=== PATIENT | male | born 1950 | race American Indian/Alaskan Native ===

== ENCOUNTER 2019-04-13 17:20 | Emergency (ER) | payer MEDICARE ==
[2019-04-13] MEDS ORDERED: MORPHINE 4 MG/1 ML INJ IV ONE (18:28)
[2019-04-13] MEDS ORDERED: amLODIPine 5 MG TAB PO ONE (18:28)
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
--- NOTE | 2019-04-13 19:32 | Cat Scan Report ---
CT BRAIN: 04/13/2019 INDICATION / CLINICAL INFORMATION: headache. COMPARISON: None available. FINDINGS: BRAIN/INTRACRANIAL STRUCTURES: Unenhanced CT images of the brain demonstrate no evidence of acute int racranial abnormality. Ventricles and sulci are slightly prominent in size, consistent with age-related atrophic change. Extensive chronic white matter hypoattenuation is seen throughout the cerebral hemispheric white shaq er, most consistent with chronic small vessel ischemic change. There is no CT evidence of acute large vessel territory ischemic injury, hemorrhage, or mass. There a re no abnormal extra-axial fluid collections. EXTRACRANIAL STRUCTURES: Unremarkable. IMPRESSION: No evidence of acute abnormality. Extensive chronic and age-related changes. All CT scans at this location are performed using dose reduction to ALARA by means of automated expos ure control. Signer Name: Maurice Uribe MD Signed: 04/13/2019 7:27 PM Workstation Name: [id number]
[2019-04-13 19:54] LABS: Basophils % (Auto) 0.8 % (0.0-1.8); Eosinophils # (Auto) 0.2 K/mm3 (0.0-0.4); Eosinophils % (Auto) 3.2 % (0.0-4.3); Hematocrit 37.9 % (35.5-45.6); Hemoglobin 13.2 gm/dl (11.8-15.2); Lymphocytes # (Auto) 2.5 K/mm3 (1.2-5.4); Lymphocytes % (Auto) 43.4 % (13.4-35.0); Mean Corpuscular HGB Conc 35 % (32-34); Mean Corpuscular Volume 84 fl (84-94); Monocytes # (Auto) 0.8 K/mm3 (0.0-0.8); Platelet Count 228 K/mm3 (140-440); Red Blood Count 4.54 M/mm3 (3.65-5.03); Red Cell Distribution Width 14.3 % (13.2-15.2)
[2019-04-13 20:16] LABS: BUN/Creatinine Ratio 24; Blood Urea Nitrogen 33 mg/dL (9-20); Calcium 8.8 mg/dL (8.4-10.2); Hemolysis Index 19
[2019-04-13] MEDS ORDERED: hydrALAZINE 20 MG/1 ML INJ IV ONE (20:39)
[2019-04-13 21:16] VITALS: BP 159/72
== END 2019-04-13 21:53 | disposition home or self-care (01) ==
LOC: ED 17:20
DX: I11.0 Hypertensive heart disease with heart failure (principal); I50.9 Heart failure, unspecified; E11.9 Type 2 diabetes mellitus without complications; J44.1 Chronic obstructive pulmonary disease with (acute) exacerbation; Z86.73 Personal history of transient ischemic attack (TIA), and cerebral infarction without residual deficits; Z90.49 Acquired absence of other specified parts of digestive tract; Z98.890 Other specified postprocedural states; Z87.891 Personal history of nicotine dependence; Z79.899 Other long term (current) drug therapy
CPT/HCPCS: 36415; 70450; 80048; 84443; 85025; 93005; 93010; 96374; 96375; 99284; J2270

== ENCOUNTER 2021-10-11 06:35 | Observation (INO) | payer MEDICARE, OTHER ==
[2021-10-11] MEDS ORDERED: ONDANSETRON 4 MG/2 ML INJ IV ONE (07:30)
[2021-10-11 08:00] LABS: Basophils % (Auto) 0.7 % (0.0-1.8); Eosinophils # (Auto) 0.1 K/mm3 (0.0-0.4); Eosinophils % (Auto) 1.7 % (0.0-4.3); Hematocrit 28.1 % (35.5-45.6); Hemoglobin 9.4 gm/dl (11.8-15.2); Lymphocytes # (Auto) 1.1 K/mm3 (1.2-5.4); Lymphocytes % (Auto) 17.7 % (13.4-35.0); Mean Corpuscular HGB Conc 33 % (32-34); Mean Corpuscular Volume 93 fl (84-94); Monocytes # (Auto) 0.6 K/mm3 (0.0-0.8); Monocytes % (Auto) 10.6 % (0.0-7.3); Platelet Count 140 K/mm3 (140-440); Red Blood Count 3.03 M/mm3 (3.65-5.03); Red Cell Distribution Width 14.6 % (13.2-15.2)
--- NOTE | 2021-10-11 08:07 | XRay Report ---
CHEST 1 VIEW INDICATION / CLINICAL INFORMATION: Dyspnea STUDY TIME: 748 COMPARISON: 05/28/2021 FINDINGS: SUPPORT DEVICES: None HEART / MEDIASTINUM: No significant abnormality. LUNGS / PLEURA: Chronic changes are again seen bilaterally. Interstitial markings appear mildly more prominent diffusely which may indicate slight pulmonary edema. There is also mild patchy focal increa sed density in the right midlung and possibly in the right base which may indicate more focal infiltr ate. No definite pleural effusion is seen. No pneumothorax. ADDITIONAL FINDINGS: No significant additional findings. Signer Name: Jian Ewing MD Signed: 10/11/2021 8:03 AM Workstation Name: [id number]
[2021-10-11 08:25] LABS: Albumin 4.1 g/dL (3.9-5); Calcium 8.8 mg/dL (8.4-10.2)
[2021-10-11 09:02] LABS: ABG Base Excess -4.7 mmol/L (-2.0-3.0); ABG HCO3 21.2 mmol/L (20.0-26.0); ABG Methemoglobin 0.4 % (0.0-1.5); ABG Oxygen Saturation 97.3 % (95.0-99.0); ABG PCO2 42.6 mm Hg; ABG PH 7.314 pH Units (7.350-7.450); ABG PO2 98.4 mm Hg (80.0-90.0)
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
[2021-10-11] MEDS ORDERED: MORPHINE 2 MG/1 ML INJ IV PRN (09:33)
[2021-10-11] MEDS ORDERED: ONDANSETRON 4 MG/2 ML INJ ONE (09:33)
[2021-10-11] MEDS ORDERED: MORPHINE 4 MG/1 ML INJ IV PRN (09:33)
[2021-10-11] MEDS ORDERED: DOCUSATE SODIUM 100 MG CAP PO PRN (09:33)
[2021-10-11] MEDS ORDERED: NALOXONE 0.4 MG/1 ML INJ IV PRN (09:33)
[2021-10-11] MEDS ORDERED: ONDANSETRON 4 MG/2 ML INJ IV PRN (09:33)
[2021-10-11] MEDS ORDERED: ZOLPIDEM 5 MG TAB PO PRN (09:33)
[2021-10-11] MEDS ORDERED: ACETAMINOPHEN 325 MG TAB PO PRN (09:33)
--- NOTE | 2021-10-11 09:33 | History and Physical Report ---
History of Present Illness Date of examination: 10/11/21 Date of admission: 10/11/2021 Chief complaint: Worsening shortness of breath, missed hemodialysis History of present illness: 71-year-old male patient with significant past medical history of end-stage renal disease on hemodialysis TTS, COPD, hypertension, dyslipidemia, benign prostatic hypertrophy, ongoing tobacco use presented to the emergency room with worsening shortness of breath Patient missed his dialysis on 3 days ago Patient also reports that he was tested positive for COVID-19 yesterday as outpatient patient denies any chest pain or palpitations. Patient denies any cough, no nausea vomiting or abdominal pain Initial evaluation findings consistent with fluid overload, ER physician has already contacted fabric separator operator's who is planning to schedule for hemodialysis. No other complaints Past History Past Medical History: dialysis, ESRD, hypertension, hyperlipidemia, other Past Surgical History: Other (AV graft) Social history: smoking. denies: alcohol abuse (Ongoing tobacco), prescription drug abuse Family history: no significant family history Medications and Allergies Allergies Allergy/AdvReac Type Severity Reaction Status Date / Time codeine Allergy Hives Verified 05/29/21 08:23 Penicillins Allergy Hives Verified 05/29/21 08:23 Home Medications Medication Instructions Recorded Confirmed Last Taken Type amLODIPine 10 mg PO DAILY #20 tab 04/13/19 05/29/21 Unknown Rx Acetaminophen [Acetaminophen TAB] 650 mg PO Q6HR PRN 05/29/21 05/29/21 Unknown History Albuterol Mdi (or & Nicu Only) 2 puff IH Q4H PRN 05/29/21 05/29/21 Unknown History [ProAir HFA Inhaler] Aspirin EC [Halfprin EC] 81 mg PO QDAY 05/29/21 05/29/21 Unknown History Atorvastatin Calcium [Lipitor] 80 mg PO QDAY 05/29/21 05/29/21 Unknown History Clopidogrel [Plavix] 75 mg PO QDAY 05/29/21 05/29/21 Unknown History Cyanocobalamin (Vitamin B-12) 250 mcg PO QDAY 05/29/21 05/29/21 Unknown History [Vitamin B-12] FLUoxetine HCL [Prozac] 30 mg PO QDAY 05/29/21 05/29/21 Unknown History Famotidine [Pepcid] 20 mg PO BID 05/29/21 05/29/21 Unknown History Finasteride [Proscar] 5 mg PO QDAY 05/29/21 05/29/21 Unknown History Furosemide [Lasix TAB] 80 mg PO QDAY 05/29/21 05/29/21 Unknown History Insulin Aspart [Novolog Flexpen] 5 unit SQ TID 05/29/21 05/29/21 Unknown History Insulin Glargine [Lantus VIAL] 15 unit SUB-Q QHS 05/29/21 05/29/21 Unknown History Lidocaine 1 patch TP BID 05/29/21 05/29/21 Unknown History Nicotine [Habitrol] 14 mg TD DAILY 05/29/21 05/29/21 Unknown History Sevelamer Carbonate [Renvela] 800 mg PO TIDWM 05/29/21 05/29/21 Unknown History Sodium Bicarbonate 650 mg PO BID 05/29/21 05/29/21 Unknown History Sodium Zirconium Cyclosilicate 10 gm PO QDAY 05/29/21 05/29/21 Unknown History [Lokelma] Tamsulosin [Flomax] 0.4 mg PO QDAY 05/29/21 05/29/21 Unknown History busPIRone [Buspar] 20 mg PO BID 05/29/21 05/29/21 Unknown History Meclizine [Antivert] 12.5 mg PO BID #20 tab 05/31/21 Unknown Rx Review of Systems Constitutional: fatigue, weakness, no weight loss, no weight gain, no fever, no chills Ears, nose, mouth and throat: no nasal congestion, no nasal discharge Cardiovascular: shortness of breath, no chest pain, no orthopnea, no palpitations Respiratory: shortness of breath, dyspnea on exertion, no cough, no hemoptysis Gastrointestinal: no abdominal pain, no nausea, no vomiting Genitourinary Male: no dysuria, no hematuria Musculoskeletal: no neck pain, no shooting arm pain Integumentary: no rash, no pruritis, no redness Neurological: weakness, no seizures, no syncope Psychiatric: no anxiety, no depression Endocrine: no cold intolerance, no heat intolerance Hematologic/Lymphatic: no easy bruising, no easy bleeding Allergic/Immunologic: no urticaria, no allergic rhinitis Exam - Constitutional Vitals: Temp Pulse Resp BP Pulse Ox 98 F 72 15 158/82 100 10/11/21 07:20 10/11/21 09:07 10/11/21 09:07 10/11/21 09:07 10/11/21 09:07 General appearance: Present: mild distress, well-nourished - EENT Eyes: Present: PERRL, EOM intact - Neck Neck: Present: supple, normal ROM - Respiratory Respiratory effort: normal Respiratory: bilateral: diminished, negative: rales, rhonchi, wheezing - Cardiovascular Rhythm: regular Heart Sounds: Present: S1 & S2 - Extremities Extremities: no ischemia, No edema - Abdominal General gastrointestinal: Present: soft, non-tender, non-distended, normal bowel sounds - Integumentary Integumentary: Present: clear, warm - Musculoskeletal Musculoskeletal: strength equal bilaterally, generalized weakness - Psychiatric Psychiatric: appropriate mood/affect, cooperative - Neurologic Neurologic: moves all extremities HEART Score - HEART Score Troponin: Troponin T 0.102 ng/mL (0.00-0.029) H* 10/11/21 07:36 Results - Labs CBC & Chem 7: 10/11/21 07:36 10/11/21 07:36 Labs: Abnormal lab results 10/11/21 10/11/21 10/11/21 Range/Units 07:36 07:36 08:45 RBC 3.03 L (3.65-5.03) M/mm3 Hgb 9.4 L (11.8-15.2) gm/dl Hct 28.1 L (35.5-45.6) % [place] % (Auto) 10.6 H (0.0-7.3) % Lymph # (Auto) 1.1 L (1.2-5.4) K/mm3 ABG pH 7.314 L (7.350-7.450) pH Units ABG pO2 98.4 H (80.0-90.0) mm Hg ABG Base Excess -4.7 L (-2.0-3.0) mmol/L ABG Hemoglobin 9.2 L (14.0-18.0) gm/dl Potassium 5.7 H (3.6-5.0) mmol/L Chloride 109.6 H (98-107) mmol/L BUN 72 H (9-20) mg/dL Creatinine 6.9 H (0.8-1.3) mg/dL Troponin T 0.102 H* (0.00-0.029) ng/mL Assessment and Plan --Positive COVID test; out of hospital prior to admission; Contact and droplet isolation, follow inflammatory markers, home O2 evaluation prior to discharge ID consultation and recommendations requested We will repeat williamson PCR test in the hospital - Acute pulmonary edema/ fluid overload/; Secondary to missed hemodialysis Nephrology consulted, hemodialysis per schedule Oxygen titrate O2 sats to more than 90% if needed -- End-stage renal disease on hemodialysis; Nephrology consulted, HD per schedule Avoid nephrotoxin, renal dosing of medications -- Hyperkalemia; Due to missed HD, hemodialysis per schedule -- Hypertension; moderate control Continue current antihypertensives and as needed medications -- Dyslipidemia; resume statin Low-cholesterol diet -- History of COPD; Oxygen titrate O2 sats to more than 90%, nebulizers Steroids, supportive care -- Benign prostatic hyperplasia; Continue tamsulosin and Proscar -- Medical noncompliance; Strongly advised to comply with dialysis Diet, follow-up visits --History of CVA with left-sided residual weakness PT OT and supportive care --Type 2 diabetes mellitus Accu-Cheks sliding scale coverage ADA diet Insulin as needed --Ongoing tobacco use; Smoking cessation counseling done patient strongly advised to quit tobacco use Nicotine patch as needed --History of vertigo; Fall precautions, meclizine as needed -- Advance care planning; +32 minutes Patient's condition, clinical findings discussed with the patient I discussed diagnosis. I discussed treatment plan I discussed the need for the consultants I discussed prognosis. I discussed discharge planning I discussed the medications and treatment plan and the mechanisms of different medications that will be started I discussed discharge planning -- Preventive health care/health management +30 minutes I discussed and counseled the importance of adhering to the treatment plan I discussed this and consequences of ongoing tobacco use, risks and side effects Discussed to comply with diet, follow-up visits, hemodialysis per schedule -- Medical noncompliance; Strongly advised to comply with dialysis Diet, follow-up visits --DVT prophylaxis; Heparin subcu -- Full CODE STATUS Closely monitor the patient and adjust management as needed plan of care reviewed with the patient and His nurse Closely monitor the patient and adjust the management as needed Follow consults evaluation recommendation Possible discharge home when stable Physical therapy occupational therapy prior to discharge Plan of care reviewed with the patient and his nurse
[2021-10-11] MEDS ORDERED: HYDROmorphone 1 MG/1 ML INJ IV PRN (09:45)
[2021-10-11] MEDS: FAMOTIDINE 10 MG TAB PO SCH ×2 (10:07→22:39)
[2021-10-11] MEDS: HEPARIN 5,000 UNIT/1 ML VIAL SUB-Q SCH ×2 (10:23→22:39)
[2021-10-11 10:40] LABS: Chol/HDL Ratio 1.85 %
[2021-10-11] MEDS ORDERED: ALBUTEROL 8.5 GM MDI INHALATION IH PRN (11:04)
[2021-10-11] MEDS ORDERED: ALBUTEROL 2.5 MG/3 ML NEBU IH PRN (11:29)
--- NOTE | 2021-10-11 12:20 | Consultation ---
History of Present Illness - Reason for Consult Consult date: 10/11/21 end stage renal disease - History of Present Illness This is a 71 year old man with ESRD who presents for shortness of breath Patient usually dialyzes / at [facility] under care of Dr. Delarosa. Last HD was earlier in week, missed last session due to malaise. Denies any recent issues with HD, including dizziness, lightheadedness, cramping, chest pain on HD. Currently, patient denies any issues including edema, access issues, nausea, vomiting, headaches. Notes progressive fatigue, malaise, dyspnea over past few days. Diagnosed with COVID-19 Past History Past Medical History: dialysis, ESRD, hypertension, hyperlipidemia, other Past Surgical History: Other (AV graft) Social history: smoking. denies: alcohol abuse (Ongoing tobacco), prescription drug abuse Family history: no significant family history Medications and Allergies Allergies Allergy/AdvReac Type Severity Reaction Status Date / Time codeine Allergy Hives Verified 05/29/21 08:23 Penicillins Allergy Hives Verified 05/29/21 08:23 Home Medications Medication Instructions Recorded Confirmed Last Taken Type amLODIPine 10 mg PO DAILY #20 tab 04/13/19 05/29/21 Unknown Rx Acetaminophen [Acetaminophen TAB] 650 mg PO Q6HR PRN 05/29/21 05/29/21 Unknown History Albuterol Mdi (or & Nicu Only) 2 puff IH Q4H PRN 05/29/21 05/29/21 Unknown History [ProAir HFA Inhaler] Aspirin EC [Halfprin EC] 81 mg PO QDAY 05/29/21 05/29/21 Unknown History Atorvastatin Calcium [Lipitor] 80 mg PO QDAY 05/29/21 05/29/21 Unknown History Clopidogrel [Plavix] 75 mg PO QDAY 05/29/21 05/29/21 Unknown History Cyanocobalamin (Vitamin B-12) 250 mcg PO QDAY 05/29/21 05/29/21 Unknown History [Vitamin B-12] FLUoxetine HCL [Prozac] 30 mg PO QDAY 05/29/21 05/29/21 Unknown History Famotidine [Pepcid] 20 mg PO BID 05/29/21 05/29/21 Unknown History Finasteride [Proscar] 5 mg PO QDAY 05/29/21 05/29/21 Unknown History Furosemide [Lasix TAB] 80 mg PO QDAY 05/29/21 05/29/21 Unknown History Insulin Aspart [Novolog Flexpen] 5 unit SQ TID 05/29/21 05/29/21 Unknown History Insulin Glargine [Lantus VIAL] 15 unit SUB-Q QHS 05/29/21 05/29/21 Unknown History Lidocaine 1 patch TP BID 05/29/21 05/29/21 Unknown History Nicotine [Habitrol] 14 mg TD DAILY 05/29/21 05/29/21 Unknown History Sevelamer Carbonate [Renvela] 800 mg PO TIDWM 05/29/21 05/29/21 Unknown History Sodium Bicarbonate 650 mg PO BID 05/29/21 05/29/21 Unknown History Sodium Zirconium Cyclosilicate 10 gm PO QDAY 05/29/21 05/29/21 Unknown History [Lokelma] Tamsulosin [Flomax] 0.4 mg PO QDAY 05/29/21 05/29/21 Unknown History busPIRone [Buspar] 20 mg PO BID 05/29/21 05/29/21 Unknown History Meclizine [Antivert] 12.5 mg PO BID #20 tab 05/31/21 Unknown Rx Active Meds: Active Medications Acetaminophen (Acetaminophen 325 Mg Tab) 650 mg PO Q4H PRN PRN Reason: Pain MILD(1-3)/Fever >100.5/KIMBLE Albuterol (Albuterol 2.5 Mg/3 Ml Nebu) 2.5 mg IH Q4H PRN PRN Reason: Shortness Of Breath Amlodipine Besylate (Amlodipine 10 Mg Tab) 10 mg PO DAILY [facility] Aspirin (Aspirin Ec 81 Mg Tab) 81 mg PO QDAY [facility] Clopidogrel Bisulfate (Clopidogrel 75 Mg Tab) 75 mg PO QDAY [facility] Docusate Sodium (Docusate Sodium 100 Mg Cap) 100 mg PO BID PRN PRN Reason: Constipation Famotidine (Famotidine 10 Mg Tab) 10 mg PO BID [facility] Last Admin: 10/11/21 10:07 Dose: 10 mg Finasteride (Finasteride 5 Mg Tab) 5 mg PO QDAY [facility] Fluoxetine HCl (Fluoxetine 10 Mg Tab) 30 mg PO QDAY [facility] Heparin Sodium (Porcine) (Heparin 5,000 Unit/1 Ml Vial) 5,000 unit SUB-Q Q12HR [facility] Last Admin: 10/11/21 10:23 Dose: Not Given Hydromorphone HCl (Hydromorphone 1 Mg/1 Ml Inj) 0.25 mg IV Q3H PRN PRN Reason: Pain , Severe (7-10) Insulin Glargine (Insulin Glargine 100 Units/Ml) 15 units SUB-Q QHS [facility] Meclizine HCl (Meclizine 12.5 Mg Tab) 12.5 mg PO BID [facility] Naloxone HCl (Naloxone 0.4 Mg/1 Ml Inj) 0.1 mg IV Q2MIN PRN PRN Reason: Res Rate </= 8 or 02 SAT < 92% Nicotine (Nicotine 14 Mg/24 Hr Patch) 14 mg TD DAILY [facility] Ondansetron HCl (Ondansetron 4 Mg/2 Ml Inj) 4 mg IV Q8H PRN PRN Reason: Nausea And Vomiting Sevelamer Carbonate (Sevelamer Carbonate 800 Mg Tab) 800 mg PO TIDWM [facility] Sodium Bicarbonate (Sodium Bicarbonate 650 Mg Tab) 650 mg PO BID [facility] Sodium Chloride (Sodium Chloride 0.9% 10 Ml Flush Syringe) 10 ml IV BID [facility] Sodium Chloride (Sodium Chloride 0.9% 10 Ml Flush Syringe) 10 ml IV PRN PRN PRN Reason: LINE FLUSH Tamsulosin HCl (Tamsulosin 0.4 Mg Cap) 0.4 mg PO QDAY [facility] Zolpidem Tartrate (Zolpidem 5 Mg Tab) 5 mg PO QHS PRN PRN Reason: Insomnia Review of Systems All systems: negative (as per HPI) Exam - Vital Signs Vital signs: Vital Signs Temp Pulse Resp BP Pulse Ox 98 F 109 H 20 166/94 100 10/11/21 07:20 10/11/21 07:20 10/11/21 07:20 10/11/21 07:20 10/11/21 07:20 - Physical Exam Narrative exam: Constitutional: no acute distress Head: NC/AT Neck: supple Lungs: clear to auscultation CV: RRR, no M/R/G Abdomen: soft, non-tender, bowel sounds present Back: nontender Extremities: no edema, pulses WNL Skin: intact Neuro: no focal deficits, alert and oriented x4 - General Appearance General appearance: well-developed, well-nourished, moderate distress EENT: ATNC Neck: Present: neck supple Respiratory: Decreased Breath Sounds Heart: normal heart rate, S1S2 Gastrointestinal: Present: normoactive bowel sounds Integumentary: no rash, warm and dry Neurologic: no focal deficit, no asterixis Psychiatric: mood/affect appropriate Results - Lab Results 10/11/21 07:36 10/11/21 07:36 Most recent lab results ABG pH 7.314 pH Units (7.350-7.450) L 10/11/21 08:45 ABG pCO2 42.6 mm Hg 10/11/21 08:45 ABG pO2 98.4 mm Hg (80.0-90.0) H 10/11/21 08:45 ABG HCO3 21.2 mmol/L (20.0-26.0) 10/11/21 08:45 ABG O2 Saturation 97.3 % (95.0-99.0) 10/11/21 08:45 Calcium 8.8 mg/dL (8.4-10.2) 10/11/21 07:36 Assessment and Plan This is a 71 year old man who presents with dyspnea # ESRD: HD today for azotemia, hyperkalemia, volume control. Plan to continue // or prn - daily labs - renally dose meds - avoid nephrotoxins - renal diet - verbal consent obtained for HD # Anemia: last hemoglobin 9.4, continue ESAs with HD # HTN: UF as tolerated. BP reasonable # Secondary Hyperparathyroidism: continue home binders as needed, vitamin D analogs prn # COVID-19, COPD
[2021-10-11] MEDS ORDERED: EMLA CREAM 5 GM TP SCH (12:31)
[2021-10-11] MEDS: TAMSULOSIN 0.4 MG CAP PO SCH (12:50)
[2021-10-11] MEDS: FLUoxetine 10 MG TAB PO SCH (12:50)
[2021-10-11] MEDS: CLOPIDOGREL 75 MG TAB PO SCH (12:51)
[2021-10-11] MEDS: ASPIRIN EC 81 MG TAB PO SCH (12:51)
[2021-10-11] MEDS: FINASTERIDE 5 MG TAB PO SCH (12:51)
[2021-10-11] MEDS: SEVELAMER CARBONATE 800 MG TAB PO SCH ×2 (12:51→16:52)
[2021-10-11] MEDS: amLODIPine 10 MG TAB PO SCH (12:58)
[2021-10-11] MEDS: SODIUM BICARBONATE 650 MG TAB PO SCH ×2 (12:58→22:39)
[2021-10-11] MEDS: NICOTINE 14 MG/24 HR PATCH TD SCH (12:58)
[2021-10-11 15:56] LABS: C-Reactive Protein < 0.03 mg/dL (0.00-1.30)
[2021-10-11 16:13] LABS: Hepatitis B Surface Antigen Non-Reactive (Negative); Hepatitis C Virus Antibody Reactive (NonReactive)
[2021-10-11] MEDS: MECLIZINE 12.5 MG TAB PO SCH ×2 (18:41→22:40)
[2021-10-11] MEDS ORDERED: INSULIN GLARGINE 100 UNITS/ML SUB-Q SCH (22:00)
[2021-10-12 07:29] LABS: Basophils % (Auto) 0.4 % (0.0-1.8); Eosinophils # (Auto) 0.2 K/mm3 (0.0-0.4); Eosinophils % (Auto) 2.9 % (0.0-4.3); Hematocrit 28.5 % (35.5-45.6); Hemoglobin 9.7 gm/dl (11.8-15.2); Lymphocytes # (Auto) 1.1 K/mm3 (1.2-5.4); Lymphocytes % (Auto) 16.8 % (13.4-35.0); Mean Corpuscular HGB Conc 34 % (32-34); Mean Corpuscular Volume 91 fl (84-94); Monocytes # (Auto) 0.7 K/mm3 (0.0-0.8); Monocytes % (Auto) 10.9 % (0.0-7.3); Platelet Count 147 K/mm3 (140-440); Red Blood Count 3.13 M/mm3 (3.65-5.03); Red Cell Distribution Width 14.6 % (13.2-15.2)
[2021-10-12] MEDS: SEVELAMER CARBONATE 800 MG TAB PO SCH ×2 (07:48→11:31)
[2021-10-12 07:54] LABS: Calcium 8.7 mg/dL (8.4-10.2)
--- NOTE | 2021-10-12 09:11 | Progress Note ---
Assessment and Plan This is a 71 year old man who presents with dyspnea # ESRD: HD 10/11 for azotemia, hyperkalemia, volume control. Plan to continue // or prn, no needs for repeat HD today per labs - daily labs - renally dose meds - avoid nephrotoxins - renal diet - verbal consent obtained for HD # Anemia: last hemoglobin 9.7, continue ESAs with HD # HTN: UF as tolerated. BP reasonable # Secondary Hyperparathyroidism: continue home binders as needed, vitamin D analogs prn # COVID-19, COPD Subjective Date of service: 10/12/21 Interval history: Chart, vitals, labs reviewed. Resting in bed. Objective - Exam Narrative Exam: Patient not directly examined today due to COVID-19 status - Vital Signs Vital signs: Vital Signs - 12hr 10/11/21 10/12/21 10/12/21 22:30 04:44 07:52 Temperature 98.0 F Pulse Rate 73 Pulse Rate [ 74 Posterior Bilateral] Respiratory 18 Rate Respiratory 20 Rate [Posterior Bilateral] Blood Pressure 132/68 [Right] O2 Sat by Pulse 96 97 Oximetry 10/12/21 08:37 Temperature Pulse Rate Pulse Rate [ Posterior Bilateral] Respiratory Rate Respiratory Rate [Posterior Bilateral] Blood Pressure [Right] O2 Sat by Pulse 99 Oximetry - Lab 10/12/21 06:45 10/12/21 06:45 Most recent lab results ABG pH 7.314 pH Units (7.350-7.450) L 10/11/21 08:45 ABG pCO2 42.6 mm Hg 10/11/21 08:45 ABG pO2 98.4 mm Hg (80.0-90.0) H 10/11/21 08:45 ABG HCO3 21.2 mmol/L (20.0-26.0) 10/11/21 08:45 ABG O2 Saturation 97.3 % (95.0-99.0) 10/11/21 08:45 Calcium 8.7 mg/dL (8.4-10.2) 10/12/21 06:45 Medications & Allergies - Medications Allergies/Adverse Reactions: Allergies codeine Allergy (Verified 05/29/21 08:23) Hives Penicillins Allergy (Verified 05/29/21 08:23) Hives Home Medications: Home Medications Medication Instructions Recorded Confirmed Last Taken Type amLODIPine 10 mg PO DAILY #20 tab 04/13/19 05/29/21 Unknown Rx Acetaminophen [Acetaminophen TAB] 650 mg PO Q6HR PRN 05/29/21 05/29/21 Unknown History Albuterol Mdi (or & Nicu Only) 2 puff IH Q4H PRN 05/29/21 05/29/21 Unknown History [ProAir HFA Inhaler] Aspirin EC [Halfprin EC] 81 mg PO QDAY 05/29/21 05/29/21 Unknown History Atorvastatin Calcium [Lipitor] 80 mg PO QDAY 05/29/21 05/29/21 Unknown History Clopidogrel [Plavix] 75 mg PO QDAY 05/29/21 05/29/21 Unknown History Cyanocobalamin (Vitamin B-12) 250 mcg PO QDAY 05/29/21 05/29/21 Unknown History [Vitamin B-12] FLUoxetine HCL [Prozac] 30 mg PO QDAY 05/29/21 05/29/21 Unknown History Famotidine [Pepcid] 20 mg PO BID 05/29/21 05/29/21 Unknown History Finasteride [Proscar] 5 mg PO QDAY 05/29/21 05/29/21 Unknown History Furosemide [Lasix TAB] 80 mg PO QDAY 05/29/21 05/29/21 Unknown History Insulin Aspart [Novolog Flexpen] 5 unit SQ TID 05/29/21 05/29/21 Unknown History Insulin Glargine [Lantus VIAL] 15 unit SUB-Q QHS 05/29/21 05/29/21 Unknown History Lidocaine 1 patch TP BID 05/29/21 05/29/21 Unknown History Nicotine [Habitrol] 14 mg TD DAILY 05/29/21 05/29/21 Unknown History Sevelamer Carbonate [Renvela] 800 mg PO TIDWM 05/29/21 05/29/21 Unknown History Sodium Bicarbonate 650 mg PO BID 05/29/21 05/29/21 Unknown History Sodium Zirconium Cyclosilicate 10 gm PO QDAY 05/29/21 05/29/21 Unknown History [Lokelma] Tamsulosin [Flomax] 0.4 mg PO QDAY 05/29/21 05/29/21 Unknown History busPIRone [Buspar] 20 mg PO BID 05/29/21 05/29/21 Unknown History Meclizine [Antivert] 12.5 mg PO BID #20 tab 05/31/21 Unknown Rx Active Medications: Generic Name Dose Route Start Last Admin Trade Name Freq PRN Reason Stop Dose Admin Acetaminophen 650 mg 10/11/21 09:33 10/11/21 17:03 Acetaminophen 325 Mg Tab PO 650 mg Q4H PRN Administration Pain MILD(1-3)/Fever >100.5/KIMBLE Albuterol 2.5 mg 10/11/21 11:29 10/12/21 04:39 Albuterol 2.5 Mg/3 Ml Nebu IH 2.5 mg Q4H PRN Administration Shortness Of Breath Amlodipine Besylate 10 mg 10/11/21 11:00 10/11/21 12:58 Amlodipine 10 Mg Tab PO 10 mg DAILY SUSH[facility] Administration Aspirin 81 mg 10/11/21 12:00 10/11/21 12:51 Aspirin Ec 81 Mg Tab PO 81 mg QDAY SUSH[facility] Administration Clopidogrel Bisulfate 75 mg 10/11/21 12:00 10/11/21 12:51 Clopidogrel 75 Mg Tab PO 75 mg QDAY SUSH[facility] Administration Docusate Sodium 100 mg 10/11/21 09:33 Docusate Sodium 100 Mg Cap PO BID PRN Constipation Famotidine 10 mg 10/11/21 10:00 10/11/21 22:39 Famotidine 10 Mg Tab PO 10 mg BID [facility]USH[facility] Administration Finasteride 5 mg 10/11/21 12:00 10/11/21 12:51 Finasteride 5 Mg Tab PO 5 mg QDAY [facility] Administration Fluoxetine HCl 30 mg 10/11/21 12:00 10/11/21 12:50 Fluoxetine 10 Mg Tab PO 30 mg QDAY [facility] Administration Heparin Sodium (Porcine) 5,000 unit 10/11/21 10:00 10/11/21 22:39 Heparin 5,000 Unit/1 Ml Vial SUB-Q 5,000 unit Q12HR [facility] Administration Hydromorphone HCl 0.25 mg 10/11/21 09:45 Hydromorphone 1 Mg/1 Ml Inj IV Q3H PRN Pain , Severe (7-10) Insulin Glargine 15 units 10/11/21 22:00 10/11/21 22:40 Insulin Glargine 100 Units/Ml SUB-Q 15 units QHS [facility] Administration Lidocaine/Prilocaine 1 applic 10/11/21 12:31 10/11/21 17:04 Emla Cream 5 Gm TP 1 applic ONCE [facility]USH[facility] Administration Meclizine HCl 12.5 mg 10/11/21 12:00 10/11/21 22:40 Meclizine 12.5 Mg Tab PO 12.5 mg BID [facility] Administration Naloxone HCl 0.1 mg 10/11/21 09:33 Naloxone 0.4 Mg/1 Ml Inj IV Q2MIN PRN Res Rate </= 8 or 02 SAT < 92% Nicotine 14 mg 10/11/21 12:00 10/11/21 12:58 Nicotine 14 Mg/24 Hr Patch TD 14 mg DAILY [facility] Administration Ondansetron HCl 4 mg 10/11/21 09:33 10/11/21 16:52 Ondansetron 4 Mg/2 Ml Inj IV 4 mg Q8H PRN Administration Nausea And Vomiting Sevelamer Carbonate 800 mg 10/11/21 12:00 10/12/21 07:48 Sevelamer Carbonate 800 Mg Tab PO 800 mg TIDWM [facility] Administration Sodium Bicarbonate 650 mg 10/11/21 12:00 10/11/21 22:39 Sodium Bicarbonate 650 Mg Tab PO 650 mg BID [facility] Administration Sodium Chloride 10 ml 10/11/21 11:00 10/11/21 22:40 Sodium Chloride 0.9% 10 Ml Flush Syringe IV 10 ml BID [facility] Administration Sodium Chloride 10 ml 10/11/21 09:33 Sodium Chloride 0.9% 10 Ml Flush Syringe IV PRN PRN LINE FLUSH Tamsulosin HCl 0.4 mg 10/11/21 12:00 10/11/21 12:50 Tamsulosin 0.4 Mg Cap PO 0.4 mg QDAY [facility] Administration Zolpidem Tartrate 5 mg 10/11/21 09:33 10/11/21 23:00 Zolpidem 5 Mg Tab PO 5 mg QHS PRN Administration Insomnia
[2021-10-12] MEDS: CLOPIDOGREL 75 MG TAB PO SCH (09:45)
[2021-10-12] MEDS: TAMSULOSIN 0.4 MG CAP PO SCH (09:45)
[2021-10-12] MEDS: FAMOTIDINE 10 MG TAB PO SCH (09:45)
[2021-10-12] MEDS: SODIUM BICARBONATE 650 MG TAB PO SCH (09:45)
[2021-10-12] MEDS: MECLIZINE 12.5 MG TAB PO SCH (09:45)
[2021-10-12] MEDS: amLODIPine 10 MG TAB PO SCH (09:45)
[2021-10-12] MEDS: ASPIRIN EC 81 MG TAB PO SCH (09:45)
[2021-10-12] MEDS: FLUoxetine 10 MG TAB PO SCH (09:45)
[2021-10-12] MEDS: NICOTINE 14 MG/24 HR PATCH TD SCH (09:46)
[2021-10-12] MEDS: FINASTERIDE 5 MG TAB PO SCH (09:46)
[2021-10-12] MEDS: HEPARIN 5,000 UNIT/1 ML VIAL SUB-Q SCH (09:46)
--- NOTE | 2021-10-12 12:18 | Discharge Summary ---
Providers - Providers Date of Admission: 10/11/21 09:33 Date of discharge: 10/12/21 Attending physician: JO HINTON 10/11/21 09:48 Consult to Physician [CONS] Routine Comment: Consulting Provider: CHARLENE GARCIA Physician Instructions: Reason For Exam: ESRD/hyperkalemia Primary care physician: TELEPHONE ANSWERER Hospitalization Reason for admission: Worsening shortness of breath and missed hemodialysis Condition: Stable Pertinent studies: cxr no acute abnormality noted Procedures: Hemodialysis per schedule Hospital course: 71-year-old male patient with significant past medical history of end-stage renal disease on hemodialysis TTS, COPD, hypertension, dyslipidemia, BPH, ongoing tobacco use was admitted through emergency room with worsening shortness of breath and missed hemodialysisPatient was noted to be hyperkalemic with fluid overload and pulmonary edema evaluated by nephrology and patient had stat hemodialysis patient symptoms slowly but gradually improved today he is comfortable no new complaints vital signs stable, physical examination prior to discharge is unremarkable, patient's labs reviewed nephrology recommendations reviewed nephrology feels that patient does not need any hemodialysis today and would resume his regular schedule TTS, the next dialysis is September on 10/14/[address] Garcia cleared for discharge and follow-up per schedule patient is stable at discharge strongly advised to comply with medicati ons, diet, dialysis, follow-up visits patient verbalized understanding Stable at discharge. Discharge diagnosis; --History of positive COVID test; out of hospital prior to admissio -- Acute pulmonary edema/ fluid overload/;Secondary to missed hemodialysis -- End-stage renal disease on hemodialysis;Nephrology consulted, HD per schedule -- Hyperkalemia;Due to missed HD, hemodialysis per schedule -- Hypertension; moderate control -- Dyslipidemia; resume statin -- History of COPD; -- Benign prostatic hyperplasia; -- Medical noncompliance; --History of CVA with left-sided residual weakness --Type 2 diabetes mellitus --Ongoing tobacco use; --History of vertigo; -- Advance care planning; +32 minutes -- Preventive health care/health management +30 minutes --DVT prophylaxis;Heparin subcu -- Full CODE STATUS Closely monitor the patient and adjust management as needed plan of care reviewed with the patient and His nurse Closely monitor the patient and adjust the management as needed Follow consults evaluation recommendation Possible discharge home when stable Physical therapy occupational therapy prior to discharge Plan of care reviewed with the patient and his nurse Cleared by nephrology for discharge Patient is stable at discharge Disposition: 01 HOME / SELF CARE / HOMELESS Final Discharge Diagnosis (Prints w/discharge instructions): History of positive COVID test. Negative rapid COVID test on 10/11/2021. End-stage renal disease on hemodialysis. Hyperkalemia. Hypertension. Dyslipidemia. History of COPD. Benign prostatic hyperplasia. Medical noncompliance. History of CVA with residual weakness. Type 2 diabetes mellitus. Ongoing tobacco use. Advance care planning Time spent for discharge: 35 min Core Measure Documentation - Palliative Care Palliative Care/ Comfort Measures: Not Applicable - Core Measures Any of the following diagnoses?: none Exam - Constitutional Vitals: Temp Pulse Resp BP Pulse Ox 98.0 F 74 20 132/53 99 10/11/21 22:30 10/12/21 04:44 10/12/21 04:44 10/12/21 09:45 10/12/21 08:37 General appearance: Present: no acute distress, well-nourished - EENT Eyes: Present: PERRL, EOM intact - Neck Neck: Present: supple, normal ROM - Respiratory Respiratory effort: normal Respiratory: bilateral: diminished, negative: rales, rhonchi, wheezing - Cardiovascular Rhythm: regular Heart Sounds: Present: S1 & S2 - Extremities Extremities: no ischemia, No edema - Abdominal General gastrointestinal: Present: soft, non-tender, non-distended, normal bowel sounds - Integumentary Integumentary: Present: clear, warm - Musculoskeletal Musculoskeletal: strength equal bilaterally, generalized weakness - Psychiatric Psychiatric: appropriate mood/affect, cooperative - Neurologic Neurologic: CNII-XII intact, moves all extremities Plan Activity: advance as tolerated, fall precautions Diet: renal Additional Instructions: If you have worsening symptoms contact MD or go to the nearest emergency room as needed. Follow renal, hemodialysis per schedule TTS. Strongly advised to comply with dialysis medications follow-up visits. Advised to follow primary care physician. Nephrology per schedule Follow up with: ELVI COLLINS MD [Primary Care Provider] - 3-5 Days CHARLENE GARCIA MD [Staff Physician] - 7 Days
[2021-10-12 12:47] VITALS: BP 98/53
--- NOTE | 2021-10-13 10:46 | Electrocardiograph Report ---
[facility] Test Date: 2021-10-12 Test Time: 08:29:56 Pat Name: MAXINE CONSTANTINO Department: Room: A358 1 Gender: M Supervisor Drawing: STEVEN : 1950 Requested By: HARSHA SONG Order Number: [id number] Reading MD: Dianne Delgado Measurements Intervals [place] Rate: 74 P: 53 SD: 214 QRS: -18 QRSD: 62 T: 93 QT: 416 QTc: 463 Interpretive Statements Sinus rhythm Borderline prolonged SD interval Inferior infarct, old Probable anterior infarct, age indeterminate Compared to ECG 05/28/2021 18:15:59 Changes of old inferior infarct are now more prominent Electronically Signed On 10-13-2021 10:46:10 EDT by Dianne Delgado
== END 2021-10-12 13:40 | disposition home or self-care (01) ==
LOC: ED 06:35 → 3A 09:33 → INTOOBSV 09:33 → 3A 11:07
PROVIDERS: ADMIT Internal Medicine; ATTEND Internal Medicine
DX: U07.1 COVID-19 (principal); E87.70 Fluid overload, unspecified; J81.1 Chronic pulmonary edema; E87.5 Hyperkalemia; I12.0 Hypertensive chronic kidney disease with stage 5 chronic kidney disease or end stage renal disease; N18.6 End stage renal disease; E78.5 Hyperlipidemia, unspecified; J44.9 Chronic obstructive pulmonary disease, unspecified; N40.0 Benign prostatic hyperplasia without lower urinary tract symptoms; R42 Dizziness and giddiness; R06.00 Dyspnea, unspecified; Z86.73 Personal history of transient ischemic attack (TIA), and cerebral infarction without residual deficits; Z91.19 Patient's noncompliance with other medical treatment and regimen; Z99.2 Dependence on renal dialysis; Z79.82 Long term (current) use of aspirin; Z79.4 Long term (current) use of insulin
CPT/HCPCS: 36415; 71045; 80048; 80053; 80061; 80074; 82728; 82803; 82962; 83615; 84484; 85025; 85379; 86140; 93005; 94640; 94760; 96372; 96374; 96376; 99291; G0378; J1644; J2405; U0003; J1815

== ENCOUNTER 2021-12-16 02:39 | Emergency (ER) | payer MEDICARE ==
--- NOTE | 2021-12-16 08:58 | XRay Report ---
CHEST 2 VIEWS INDICATION / CLINICAL INFORMATION: Dyspnea. COMPARISON: 10/11/2021 FINDINGS: SUPPORT DEVICES: None. HEART / MEDIASTINUM: Stable mild cardiomegaly LUNGS / PLEURA: The lungs are hyperinflated. There is mild central pulmonary venous congestion and tr david bilateral pleural effusions. No pneumothorax. ADDITIONAL FINDINGS: No significant additional findings. IMPRESSION: 1. Mild CHF Signer Name: Braeden Dietrich Jr, MD Signed: 12/16/2021 8:54 AM Workstation Name: [id number]
[2021-12-16 10:16] LABS: Basophils % (Auto) 0.6 % (0.0-1.8); Eosinophils # (Auto) 0.1 K/mm3 (0.0-0.4); Eosinophils % (Auto) 1.5 % (0.0-4.3); Hematocrit 33.8 % (35.5-45.6); Hemoglobin 11.3 gm/dl (11.8-15.2); Lymphocytes # (Auto) 1.1 K/mm3 (1.2-5.4); Lymphocytes % (Auto) 21.4 % (13.4-35.0); Mean Corpuscular HGB Conc 34 % (32-34); Mean Corpuscular Volume 94 fl (84-94); Monocytes # (Auto) 0.7 K/mm3 (0.0-0.8); Monocytes % (Auto) 13.1 % (0.0-7.3); Platelet Count 143 K/mm3 (140-440); Red Cell Distribution Width 15.8 % (13.2-15.2)
[2021-12-16 10:41] VITALS: BP 173/78
[2021-12-16 10:57] LABS: Albumin 4.5 g/dL (3.9-5); Calcium 9.3 mg/dL (8.4-10.2)
[2021-12-16 11:38] LABS: Chol/HDL Ratio 2.16 %
--- NOTE | 2021-12-16 15:26 | Event Note ---
ED Screening Note ED Screening Note: DERANGED LABS NOTED WHILE PT IN [facility] Labs 12/16/21 12/16/21 12/16/21 09:19 09:19 10:38 WBC 5.3 RBC 3.60 L Hgb 11.3 L Hct 33.8 L MCV 94 MCH 31 MCHC 34 RDW 15.8 H Plt Count 143 Lymph % (Auto) 21.4 [place] % (Auto) 13.1 H Eos % (Auto) 1.5 Baso % (Auto) 0.6 Lymph # (Auto) 1.1 L [place] # (Auto) 0.7 Eos # (Auto) 0.1 Baso # (Auto) 0.0 Seg Neutrophils % 63.4 Seg Neutrophils # 3.4 Sodium 142 Potassium 5.0 Chloride 106.4 Carbon Dioxide 23 Anion Gap 18 BUN 41 H Creatinine 5.5 H Estimated GFR 12 BUN/Creatinine Ratio 7 Glucose 70 L POC Glucose 83 Calcium 9.3 Total Bilirubin 0.50 AST 9 ALT 9 Alkaline Phosphatase 75 Troponin T 0.115 H* Total Protein 7.4 Albumin 4.5 Albumin/Globulin Ratio 1.6 Triglycerides 53 Cholesterol 128 LDL Cholesterol Direct 56 HDL Cholesterol 59 Cholesterol/HDL Ratio 2.16 12/16/21 13:26 WBC RBC Hgb Hct MCV MCH MCHC RDW Plt Count Lymph % (Auto) [place] % (Auto) Eos % (Auto) Baso % (Auto) Lymph # (Auto) [place] # (Auto) Eos # (Auto) Baso # (Auto) Seg Neutrophils % Seg Neutrophils # Sodium Potassium Chloride Carbon Dioxide Anion Gap BUN Creatinine Estimated GFR BUN/Creatinine Ratio Glucose POC Glucose Calcium Total Bilirubin AST ALT Alkaline Phosphatase Troponin T 0.122 H* Total Protein Albumin Albumin/Globulin Ratio Triglycerides Cholesterol LDL Cholesterol Direct HDL Cholesterol Cholesterol/HDL Ratio Vital Signs 12/16/21 12/16/21 02:50 10:40 Temperature 98.2 F Pulse Rate 88 82 Respiratory 16 16 Rate Blood Pressure 160/97 173/78 [Right] O2 Sat by Pulse 98 97 Oximetry CHARGE NURSE AND DIRECTOR AWARE PT TO FAST TRACK This initial assessment/diagnostic orders/clinical plan/treatment(s) is/are subject to change based on patients health status, clinical progression and re- assessment by fellow clinical providers in the ED. Further treatment and workup at subsequent clinical providers discretion. Patient/guardian urged not to elope from the ED as their condition may be serious if not clinically assessed and managed. Initial orders include: 1530 PT LEFT ER PRIOR TO BEING SEEN HE WAS ADVISED MYSELF NOT TO LEAVE HE LEFT
--- NOTE | 2021-12-16 16:33 | Emergency Department Report ---
Blank Doc - Documentation Documentation: [id number] I attempted to reach the patient. The patient did not answer phone call at the number listed. I did reach patient's daughter. She was informed that her father was here and had abnormal lab values and he is encouraged to either return for further evaluation and possible admission or return to another hospital.
== END 2021-12-16 15:26 | disposition left against medical advice (07) ==
LOC: ED 02:39
DX: F41.9 Anxiety disorder, unspecified (principal); Z53.21 Procedure and treatment not carried out due to patient leaving prior to being seen by health care provider; Z79.899 Other long term (current) drug therapy
CPT/HCPCS: 36415; 71046; 80053; 80061; 82962; 84484; 85025